=== PATIENT | male | born 1990 | race Caucasian/White ===

== ENCOUNTER 2020-06-04 21:00 | Emergency (ER) | payer BC, SELFPAY ==
[2020-06-04] MEDS ORDERED: Tetracaine 0.5% PF 4 ML BOT ONE ×2 (21:11→21:50)
[2020-06-04] MEDS ORDERED: Fluorescein Opthalmic Strip ONE (21:11)
== END 2020-06-04 22:16 | disposition home or self-care (01) ==
LOC: CSHERS 21:00
DX: T15.02XA Foreign body in cornea, left eye, initial encounter (principal); F17.210 Nicotine dependence, cigarettes, uncomplicated
CPT/HCPCS: 65222

== ENCOUNTER 2022-05-17 19:05 | Emergency (ER) | payer SELFPAY ==
[2022-05-17] MEDS ORDERED: Tetracaine 0.5% PF 4 ML BOT ONE (19:43)
[2022-05-17] MEDS ORDERED: Fluorescein Opthalmic Strip ONE (19:47)
== END 2022-05-17 20:20 | disposition home or self-care (01) ==
LOC: CSHERS 19:05
DX: H10.9 Unspecified conjunctivitis (principal); F17.290 Nicotine dependence, other tobacco product, uncomplicated
CPT/HCPCS: 99282